=== PATIENT | male | born 1965 | race Caucasian/White ===

== ENCOUNTER 2020-08-06 02:16 | Observation (INO) | payer OTHER, BC ==
[~2020-08-06] VITALS: Ht 188 cm; Wt 116.4 kg
--- NOTE | 2020-08-06 06:40 | NUR ---
PT ADMITTED TO ROOM ICU 15 UNDER PCU STATUS. PT ARRIVES AT 0520. IS ABLE TO PIVOT TRANSFER TO BED FROM [facility]. ALERT AND ORIENTED. PLEASANT AND COOPERATIVE WITH CARE AND ASSESSMENT. STATED THAT HE CAME TO THE HOSPITAL [facility]OND[facility] TO ONE SIDE OF HIS TONGUE SWELLING AND PROGRESSING TO THE POINT HE FELT IT WAS COMPROMISING HIS AIRWAY. CLAIMS AT THIS TIME, THAT HE IS FEELING MUCH BETTER. WILL CONTINUE TO MONITOR PT, AND WILL REPORT OFF TO ONCOMING RN.
--- NOTE | 2020-08-06 07:15 | NUR ---
Assumed care of pt at 0700. Bedside report received from Amaury GILES. Pt is PCU status. Pt A&O x 4. Answers questions. Follows commands. Verbalizes needs. Pleasant and cooperative with care. Pt states he feels back to his normal self. SpO2 90% or greater with room air. Pt currently NPO. Plan to do bedside swallow eval and start diet if provider allows this.
--- NOTE | 2020-08-06 10:47 | NUR ---
Dr Cabrera in to see patient. States pt can discharge later this afternoon. States that diet may be advanced as tolerated. Pt states he is feeling ready to go home and is disappointed that he has to wait until this afternoon, "but that's okay because my is still sleeping anyway". Pt tolerating clear and full liquids. Plan to provider regular lunch tray.
[2020-08-06] MEDS ORDERED: LIDO700A20 TOP (11:00)
[2020-08-06] MEDS ORDERED: MOBIC15 MG PO (11:14)
[2020-08-06] MEDS ORDERED: ZESTORETIC 20-121 EA PO (11:14)
[2020-08-06] MEDS ORDERED: NEURONTIN400 M1 PO (11:15)
[2020-08-06] MEDS ORDERED: BENADRYL25 MG PO (13:18)
[2020-08-06] MEDS ORDERED: HYDCHL25 PO (13:19)
[2020-08-06] MEDS ORDERED: PRED20 PO (13:19)
--- NOTE | 2020-08-06 14:43 | NUR ---
Pt tolerated regular adult diet lunch well. No difficulty swallowing. Discharge orders received from Dr Cabrera. Medication orders faxed to [facility] pharmacy in [place]. Pt instructed to stop taking lisinopril and educated that he has a prescription for HCTZ pills in lieu of combination pill. Pt verbalizes understanding. Pt verbalizes understanding that he is to stop taking Mobic until he sees his primary care provider. IV access removed. Pt departed from unit via wheelchair, accompanied by this RN, to personal vehicle driven by his spouse. Departed from ICU 15 at 1410.
== END 2020-08-06 14:10 | disposition home or self-care (01) ==
LOC: ER 02:16 → ICUW 02:17 → ER 07:01 → ICUW 14:10
PROVIDERS: ADMIT Internal Medicine
DX: T78.3XXA Angioneurotic edema, initial encounter (principal); I10 Essential (primary) hypertension; E88.81 Metabolic syndrome and other insulin resistance; Z88.8 Allergy status to other drugs, medicaments and biological substances
CPT/HCPCS: 96372; 96374; 96375; 99285; G0378; J0171; J1200; J1650; J2930; J7030

== ENCOUNTER 2024-04-09 06:05 | Day surgery (SDC) | payer OTHER ==
[2024-04-09] VITALS (20 sets, daily range): BP systolic 101–180; BP diastolic 49–82
[~2024-04-09] VITALS: Ht 182.9 cm; Wt 107.5 kg
[~2024-04-09 06:05] MED LIST: AIRSUPRA 90-810.7 GM; ALBU90OI INH; AMLO5 PO; ATOR20 PO; BENADRYL25 MG PO; BUDESONIDE0.5 MG/2 M INH; CENTRUM SILVER1 EAC2 PO; CINNAMON EXTRA500 MG PO; FAMO20 PO; GABA300 PO; HYDCHL25 PO; Hytrin2 MG PO; IBUP200 PO; KETO15TC TOP; LIDO700A20 TOP; LOSA50 PO; METF500 PO; MOBIC15 MG PO; NEURONTIN400 M1 PO; PRED20 PO; VITAMIN D31000 UNI1 PO; Vitamin B Comple1 EA PO; ZESTORETIC 20-121 EA PO; ZYRTEC10 M4 PO
[2024-04-09] MEDS ORDERED: Tranexamic Acid 100 ML IV SCH (06:20)
[2024-04-09] MEDS ORDERED: CeFAZolin Sodium 2,000 MG in NS 100 ML IV SCH ×2 (06:20→16:00)
[2024-04-09] MEDS ORDERED: Acetaminophen 500 MG Tab PO SCH ×2 (06:20→16:00)
[2024-04-09] MEDS ORDERED: OxyCODONE HCL 10 MG TABCR PO SCH (06:20)
[2024-04-09] MEDS ORDERED: Lactated Ringer's 1,000 ML IV SCH ×2 (06:20→07:55)
[2024-04-09] MEDS ORDERED: Chlorhexidine Mouth Care 15 ML UDC MT SCH (06:20)
[2024-04-09] MEDS ORDERED: Ropivacaine 0.5% HCl/Pf 123.125 MG,EPINEPHrine HCL 0.25 MG,Ketorolac Tromethamine 15 MG... INFIL SCH (06:20)
[2024-04-09] MEDS ORDERED: CeFAZolin Sodium 2,000 MG VIAL ONE (07:02)
--- NOTE | 2024-04-09 07:15 | NUR ---
Ambulatory in Day Surgery.Pt reports 3/10 left hip pain. Pt states that it woke him up at 0130. History, Chart, Medications and Allergies reviewed before start of procedure.Lungs clear T/O to Auscultation. Patient confirms NPO status and agrees with scheduled surgery. Patient reports completing Chlorhexadine shower X2 prior to admission to hospital.Surgical site prepped with 2% Chlorhexidine cloth wipe.
[2024-04-09] MEDS ORDERED: FentaNYL Citrate 50 MCG/ML 5 ML Injection ONE (07:24)
[2024-04-09] MEDS ORDERED: Midazolam HCl 1MG / ML 2ML Vial ONE (07:24)
[2024-04-09] MEDS ORDERED: propofoL 20 ML IV ONE (07:25)
[2024-04-09] MEDS ORDERED: Lidocaine HCl 2% 20 ML MDV ONE (07:27)
[2024-04-09] MEDS ORDERED: Dexamethasone Sod Phos 10 MG/ML 1ML VIAL ONE (07:28)
[2024-04-09] MEDS ORDERED: Rocuronium Bromide 10 MG/ML 5ML Injection IV ONE ×2 (07:28→08:08)
[2024-04-09] MEDS ORDERED: Ondansetron HCl 2 MG / ML 2ML Vial ONE (07:28)
[2024-04-09] MEDS ORDERED: DiphenhydrAMINE HCL 25 MG Cap PO PRN (07:50)
[2024-04-09] MEDS ORDERED: Promethazine HCl 25 MG Tab PO PRN (07:50)
[2024-04-09] MEDS ORDERED: Prochlorperazine Edisylate 10 mg Vial IV PRN (07:50)
[2024-04-09] MEDS ORDERED: Bisacodyl 10 MG Supp PR PRN (07:50)
[2024-04-09] MEDS ORDERED: Metoclopramide HCl 5MG / ML 2ML Vial IV PRN (07:55)
[2024-04-09] MEDS ORDERED: Magnesium Hydroxide Conc 10 ML UDC PO PRN (07:55)
[2024-04-09] MEDS ORDERED: HYDROmorphone HCl/Pf 1MG SYR IV PRN (07:55)
[2024-04-09] MEDS ORDERED: OxyCODONE HCL 5 MG TAB PO PRN ×2 (08:00)
[2024-04-09] MEDS ORDERED: FLU VACC TS2024-25(6MOS UP)/PF 45 MCG/0.5 ML SYRINGE IM SCH (08:00)
[2024-04-09] MEDS ORDERED: Ondansetron HCl 2 MG / ML 2ML Vial IV PRN (08:00)
[2024-04-09] MEDS ORDERED: Labetalol HCL 5 MG/ML 4ML Injection (Single Dose) ONE (08:41)
[2024-04-09] MEDS ORDERED: Sugammadex Sodium 200 MG/2ML SDV (100 MG/ML) ONE (08:47)
--- NOTE | 2024-04-09 08:51 | NUR ---
04/09/24 0851 Trina Woodall PATIENT RECEIVED ANCEF 2GM IV AT 0741. PATIENT RECEIVED TXA IV AT 0731. JOINTCOKTAIL WAS ADMINISTERED INTO THE LEFT HIP JOINT CAPSULE AREA AND SURROUNDING AREA BY AT 0830.
[2024-04-09] MEDS ORDERED: HYDROmorphone HCl/Pf 1MG SYR ONE (09:00)
--- NOTE | 2024-04-09 11:42 | NUR ---
ARRIVAL TO SURGICAL PATIENT TRANSFERRED TO SURGICAL APPROX 1120. S/P L WILLIAMS. PATIENT ALERT AND ORIENTED X4. COMMUNICATING NEEDS EFFECTIVELY. PERRLA. VSS. SBP 150s. DENIES CHEST PAIN, PRESSURE. ON ROOM AIR, SATs >90%. RR EVEN, UNLABORED. TOLERATING SMALL SNACKS WITHOUT NAUSEA/VOMITING. PRINEO DRESSING TO INCISION ON L HIP. NO DRAINAGE FROM SIGHT. REPORTING 5/10 PAIN. MEDICATED PER EMAR. FULL SENSATION TO LLE. PPP. CALL LIGHT IN REACH.
[2024-04-09] MEDS ORDERED: Ketorolac Tromethamine 15mg Vial IV SCH (12:00)
--- NOTE | 2024-04-09 15:59 | NUR ---
AT APPROX 1520, PATIENT STOOD AT BEDSIDE TO USE URINAL WITH MELO VO. FIRST TIME STANDING SINCE PRIOR TO PROCEDURE. THIS RN AND TIMMY RN AT BEDSIDE. WHILE STANDING, PATIENT REPORTED DIZZINESS AND BECAME DIAPHORETIC. THEN, PATIENT BECAME UNRESPONSIVE FOR LESS THAN 30 SECONDS. THIS RN AND TIMMY RN TRANSFERRED PATIENT TO BED. PATIENT PLACED IN REVERSE TRENDENLENBERG. PATIENT THEN BECAME RESPONSIVE. VSS OBTAINED, VSS STABLE. BP SOFT, SBP 100s. MAP >65. STATES "I FEEL A LOT BETTER LAYING DOWN." LR INFUSING PER EMAR. X1 INCONTINENT VOID - GOWN AND LINENS CHANGED. DRESSING TO L HIP CHANGED TO AQUACEL DUE TO WEEPING SEROSANGUINOUS DRAINAGE. Q1H VS INITIATED. CALL LIGHT IN REACH. PHYSICAL THERAPY NOTIFIED TO WAIT UNTIL THE MORNING FOR THERAPY. WILL CONTINUE TO MONITOR.
--- NOTE | 2024-04-09 17:33 | NUR ---
SHIFT SUMMARY SEE PREVIOUS NOTES. PATIENT CURRENTLY RESTING IN BED, EASILY AROUSABLE WITH VERBAL STIMULI. VS REMAIN STABLE POST SYNCOPAL EVENT (SEE PREVIOUS NOTE). SBP 100s-110s. MAP >65. LR INFUSING PER EMAR. HAS NOT AMBULATED SINCE EVENT. REMAINS ON ROOM AIR. IS REPORTING MILD NAUSEA - MEDICATED PER EMAR WITH IV ZOFRAN. NO EPISODES OF EMESIS AT THIS TIME. AQUACEL DRESSING TO L HIP C/D/I. MANAGING PAIN PER EMAR. VOIDING. CALL LIGHT IN REACH. AT BEDSIDE. WILL CONTINUE TO MONITOR AND REPORT TO ONCOMING RN.
[2024-04-09] MEDS ORDERED: Prazosin HCl 1 MG Cap PO SCH (21:00)
[2024-04-09] MEDS ORDERED: Docusate Sodium 100 MG Cap PO SCH (21:00)
[2024-04-10 04:07] VITALS: BP 135/71
[2024-04-10 04:20] LABS: BASOPHILS ABSOLUTE AUTO 0.02 K/mm3 (0.00-0.23); BASOPHILS PERCENT AUTO 0 % (0-2); EOSINOPHILS ABSOLUTE AUTO 0.03 K/mm3 (0.00-0.68); EOSINOPHILS PERCENT AUTO 0 % (0-6); Hematocrit 33.7 % (37.0-53.0); Hemoglobin 11.6 g/dL (13.5-17.5); IMMATURE GRAN ABSOLUTE AUTO 0.07 K/mm3 (0.00-0.10); IMMATURE GRAN PERCENT AUTO 0 % (0-1); LYMPHOCYTES ABSOLUTE AUTO 1.54 K/mm3 (0.84-5.20); LYMPHOCYTES PERCENT AUTO 10 % (21-46); MONOCYTES ABSOLUTE AUTO 1.71 K/mm3 (0.16-1.47); MONOCYTES PERCENT AUTO 11 % (4-13); Mean Corpuscular HGB 31.5 pg (26.0-34.0); Mean Corpuscular HGB Conc 34.4 g/dL (31.5-36.5); Mean Corpuscular Volume 92 fL (80-100); Mean Platelet Volume 9.6 fL (9.1-12.4); NEUTROPHILS ABSOLUTE AUTO 12.84 K/mm3 (1.96-9.15); NEUTROPHILS PERCENT AUTO 79 % (41-73); Platelet Count 213 K/mm3 (150-400); RDW Coefficient Variation 13.4 % (11.7-14.2); RDW Standard Deviation 45.6 fL (35.1-46.3); Red Blood Cell Count 3.68 M/mm3 (4.30-5.90); White Blood Cell Count 16.21 K/mm3 (4.00-11.30)
[2024-04-10 04:37] LABS: Bun/Creatinine Ratio 19.6 (12.0-20.0); Calcium, Blood 8.5 mg/dL (8.5-10.1); Creatinine, Blood 1.07 mg/dL (0.60-1.20); Magnesium, Blood 2.1 mg/dL (1.6-2.4); Potassium, Blood 3.6 mmol/L (3.5-5.5)
--- NOTE | 2024-04-10 04:57 | NUR ---
SHIFT SUMMARY POD1 L WILLIAMS. SENSATION AND CIRCULATION REMAINS INTACT, VSS. NO EPISODES OF HYPOTENTION OR SYNCOPE T/O THE NIGHT. LLE NOTED TO HAVE MILD BRUISING AND SWELLING SURROUNDING THE INCISION. DRESSING IS C/D/I. PT ABLE TO VOID IN THE URINAL T/O THE NIGHT, AND TOLLERATED AMBULATING TO THE BATHROOM THIS AM W/O SYMPTOMS OF DIZZINESS. TOLLERATING PO INTAKE W/O N/V. OVERALL, NO ACUTE EVENTS T/O THE NIGHT. PLAN FOR PHYSICAL THERAPY THIS AM AND D/C HOME
[2024-04-10 06:57] VITALS: BP 114/54
[2024-04-10] MEDS ORDERED: ASPI81CH PO (07:39)
[2024-04-10] MEDS ORDERED: ACET500 PO (07:39)
[2024-04-10] MEDS ORDERED: Cholecalciferol 1000 Unit Tablet (=25MCG) PO SCH (09:00)
[2024-04-10] MEDS ORDERED: HydroCHLOROthiazide 25 mg Tab PO SCH (09:00)
--- NOTE | 2024-04-10 09:26 | NUR ---
ASSUMPTION OF CARE ASSUMED CARE AT APPROX 0715. PATIENT ALERT AND ORIENTED X4. SITTING IN RECLINER CHAIR THIS MORNING. COMMUNICATES NEEDS EFFECTIVELY. DOES EXPERIENCE EPISODES OF INCREASED ANXIETY RELATED TO POST OP EDUCATION, PROCEDURE - EASES WITH EDUCATION, THERAPUETIC DISCUSSION. VSS. ON ROOM AIR, SATs >90%. RR EVEN, UNLABORED. TOLERATING PO INTAKE. POST OP DAY 1 FOR L WILLIAMS. MINIMAL SEROSANGUINOUS DRAINAGE TO AQUACEL DRESSING. MANAGING PAIN PER EMAR. COOLING DEVICE IN PLACE. CALL LIGHT IN REACH. AWAITING PHYSICAL THERAPY EVAL.
--- NOTE | 2024-04-10 10:15 | NUR ---
"Spiritual Care | Pt. Request Pt. is awake in a recliner when he welcomes my visit. Pt. displays some discomfort from his surgery. Nurse arrives to provide some pain meds. Facilitated a life review. Listen with interest and empathy. Pt. verbalizes some concerns about the challenges of navigating stairs at his home when he is discharged. Pt. also verbalized that his keshawn was not a present part of his life, but verbalized gratitude for the spiritual care visit. Will remain available to the Pt."
--- NOTE | 2024-04-10 12:06 | NUR ---
DISCHARGE NOTE PATIENT CLEARED BY PHYSICAL THERAPY THIS MORNING TO DISCHARGE HOME. VSS. NO ACUTE CHANGES SINCE PREVIOUS DOCUMENTATION. POST OP DAY 1 FOR L WILLIAMS - NO INCREASE IN SEROSANGUINOUS DRAINAGE TO AQUACEL DRESSING FROM PREVIOUS DOCUMENTATION. PAIN MANAGED WITH PRESCRIBED MEDICATION AND COOLING DEVICE. TOLERATING PO INTAKE. DISCHARGE EDUCATION PROVIDED - AT BEDSIDE. BOTH RECEPTIVE TO EDUCATION, ASKING QUESTIONS TO GAIN GREATER UNDERSTANDING. IV REMOVED. PERSONAL BELONGINGS INCLUDING COOLING DEVICE WITH PATIENT. PATIENT TRANSFERRED OFF UNIT VIA WHEELCHAIR TO PERSONAL VEHICLE AT APPROX 1155.
[2024-04-10] MEDS ORDERED: Aspirin 81 MG Chew PO SCH (21:00)
== END 2024-04-10 12:07 | disposition home or self-care (01) ==
LOC: ORSCMMR 06:05 → ORD 07:30 → ORSCMMR 07:30 → SURS 11:15 → ORSCMMR 04-10 12:07
PROVIDERS: Orthopaedic Surgery
PROC: 0SRB0JA Replacement of Left Hip Joint with Synthetic Substitute, Uncemented, Open Approach (ICD-10-PCS; principal; 2024-04-10)
DX: M16.12 Unilateral primary osteoarthritis, left hip (principal); I10 Essential (primary) hypertension; Z79.899 Other long term (current) drug therapy
CPT/HCPCS: 36415; 72170; 80048; 83735; 85025; 97110; 97116; 97162; A9270; C1769; C1776; J0171; J0690; J0735; J1100; J1171; J1885; J2250; J2405; J2704; J2795; J3010; J7120

== ENCOUNTER 2024-07-03 10:27 | Day surgery (SDC) | payer OTHER ==
[~2024-07-03] VITALS: Ht 188 cm; Wt 109.7 kg
[~2024-07-03 10:27] MED LIST changes: +ACET500 PO; +ASPI81CH PO; +Bupivacaine 0.5% HCl 5 MG/ML 30MLVIAL ONE; +EPINEPhrine HCl 1 MG/ML 1ML Amp ONE
[2024-07-03] MEDS ORDERED: NS 1,000 ML IV ONE (10:50)
[2024-07-03] MEDS ORDERED: CeFAZolin Sodium 2,000 MG VIAL ONE (11:04)
[2024-07-03] MEDS ORDERED: Tranexamic Acid 100 ML IV ONE (11:05)
[2024-07-03] MEDS ORDERED: propofoL 20 ML IV ONE (11:13)
[2024-07-03] MEDS ORDERED: Rocuronium Bromide 10 MG/ML 5ML Injection IV ONE (11:13)
[2024-07-03] MEDS ORDERED: Midazolam HCl 1MG / ML 2ML Vial ONE (11:14)
[2024-07-03] MEDS ORDERED: hydrochlorothiazide PO (11:42)
[2024-07-03] MEDS ORDERED: Lactated Ringer's 1,000 ML IV ONE (11:43)
--- NOTE | 2024-07-03 12:23 | NUR ---
07/03/24 1223 NEEL MILLER PT WAS ABLE TO SEE AND SIT WITH PT. HOWEVER, ONCE BLOCK WAS BEING PREPARED, WAS WALKED OUT TO THE WAITING ROOM. TIME OUT 1217 BLOCK STARTED: 1217 BLOCK FINISHED: 1223
[2024-07-03] MEDS ORDERED: Metoclopramide HCl 5MG / ML 2ML Vial ONE (12:53)
[2024-07-03] MEDS ORDERED: Ketorolac Tromethamine 30mg Vial ONE (12:53)
[2024-07-03] MEDS ORDERED: Phenylephrine HCl 100 MCG/ML-NS 10MLSYR (1MG/10ML) ONE (12:53)
[2024-07-03] MEDS ORDERED: Dexamethasone Sod Phos 10 MG/ML 1ML VIAL ONE (12:53)
[2024-07-03] MEDS ORDERED: Sugammadex Sodium 200 MG/2ML SDV (100 MG/ML) ONE (12:53)
[2024-07-03] MEDS ORDERED: EPINEPhrine HCl 1 MG/ML 1ML Amp XX ONE (13:14)
[2024-07-03] MEDS ORDERED: FentaNYL Citrate 50 MCG/ML 2 ML Injection ONE (14:57)
[2024-07-03] MEDS ORDERED: OxyCODONE HCL 5 MG TAB ONE (15:30)
[2024-07-03 15:49] VITALS: BP 147/78
--- NOTE | 2024-07-03 16:25 | NUR ---
07/03/24 1625 Marisela Wyman PT. VOIDED PRIOR TO GOING HOME.
== END 2024-07-03 15:15 | disposition home or self-care (01) ==
LOC: ORSCSDS 10:27
PROVIDERS: Orthopaedic Surgery Sports Medicine
PROC: 0RNK4ZZ Release Left Shoulder Joint, Percutaneous Endoscopic Approach (ICD-10-PCS; principal; 2024-07-03 12:00)
DX: M75.102 Unspecified rotator cuff tear or rupture of left shoulder, not specified as traumatic (principal); M75.42 Impingement syndrome of left shoulder; I10 Essential (primary) hypertension; Z79.899 Other long term (current) drug therapy
CPT/HCPCS: 82947; A9270; C1713; J0171; J0690; J1100; J1885; J2250; J2371; J2704; J2765; J3010; J7030; J7120